=== PATIENT | female | born 1965 | race Caucasian/White ===

== ENCOUNTER → 2018-04-24 | Day surgery (SDC) | payer OTHER ==
[~2018-04-24] MED LIST: BUPIVACAINE 0.25% (MPF) 30 ML INJ; CEFAZOLIN 1 GM INJ; CEFAZOLIN 2 GM/50 ML (PMX) 50 ML IVPB; EPHEDrine 50 MG INJ; GLYCOPYRROLATE 0.4 MG INJ; HYDROmorphONE 1 MG/5 ML IV SYRINGE IV; KETOROLAC 30 MG INJ; MEPERIDINE 25 MG INJ IV; METOCLOPRAMIDE 10 MG INJ; MIDAZOLAM 1 MG/ML 2 ML INJ; NEOSTIGMINE 10 MG INJ; ONDANSETRON 4 MG INJ; OXYCODONE/ACETAMINOPHEN (5/325) TAB PO; PROPOFOL 200 MG INJ; ROCURONIUM 50 MG INJ; ROPIVACAINE 0.5 % 30 ML VIAL; SOD CHLORIDE 0.9% 1,000 ML IV
[2018-04-24 07:01] LABS: ADD MAN DIFF? NO
[2018-04-24 07:05] LABS: WHITE BLOOD COUNT 5.6 10^3/ul (4.8-10.8)
[2018-04-24 07:05] LABS: BASOPHILS % 0.5 % (0.0-2.0); EOSINOPHILS # 0.3 10^3/ul (0.0-0.5); EOSINOPHILS % 4.6 % (0.0-7.0); HEMOGLOBIN 14.2 g/dl (12.0-16.0); LYMPHOCYTES # 2.1 10^3/ul (0.8-2.9); LYMPHOCYTES % 38.1 % (15.0-51.0); MEAN CORPUSCULAR HEMOGLOBIN 31.6 pg (29.0-33.0); MEAN CORPUSCULAR HGB CONC 33.8 g/dl (32.0-37.0); MEAN CORPUSCULAR VOLUME 93.3 fl (82.0-101.0); MEAN PLATELET VOLUME 9.7 fl (7.4-10.4); MONOCYTE # 0.4 10^3/ul (0.3-0.9); MONOCYTES % 7.8 % (0.0-11.0); NEUTROPHIL # 2.7 10^3/ul (1.6-7.5); NEUTROPHILS % 48.8 % (39.0-77.0); PLATELET COUNT 188 10^3/UL (140-415); RED CELL DISTRIBUTION WIDTH 12.4 % (11.5-14.5)
[2018-04-24 07:20] LABS: ALANINE AMINOTRANSFERASE 17 IU/L (13-69); ALBUMIN 4.5 g/dl (3.3-4.9); ALBUMIN/GLOBULIN RATIO 1.25; ALKALINE PHOSPHATASE 70 IU/L (42-121); ANION GAP 14 (5-13); ASPARTATE AMINO TRANSFERASE 28 IU/L (15-46); BILIRUBIN,INDIRECT 0.9 mg/dl (0-1.1); BILIRUBIN,TOTAL 0.9 mg/dl (0.2-1.3); BLOOD UREA NITROGEN 13 mg/dl (7-20); CALCIUM 9.5 mg/dl (8.4-10.2); CARBON DIOXIDE 24 mmol/L (21-31); CHLORIDE 107 mmol/L (97-110); Estimated GFR > 60 mL/min (>60); GLUCOSE 108 mg/dl (70-220); POTASSIUM 4.2 mmol/L (3.5-5.1); TOTAL PROTEIN 8.1 g/dl (6.1-8.1)
[2018-04-24 07:24] LABS: INR 0.92; PROTIME 12.5 Sec (11.9-14.9); SODIUM 145 mmol/L (135-144)
[2018-04-24 07:25] LABS: PARTIAL THROMBOPLASTIN TIME 27.7 Sec (23.0-35.0)
[2018-04-24] MEDS: HYDROmorphONE 1 MG/5 ML IV SYRINGE IV ×3 (08:49→09:06)
[2018-04-24] MEDS: ONDANSETRON 4 MG INJ IV (08:50)
[2018-04-24] MEDS: HYDROCODONE/APAP (5/325) TAB PO (09:06)
== END | disposition home or self-care (01) ==
LOC: SDS 06:10
DX: K80.10 Calculus of gallbladder with chronic cholecystitis without obstruction (principal)
CPT/HCPCS: 47562; 71045; 80053; 85025; 85610; 85730; 88304; 93005